=== PATIENT | female | born 1950 | race Caucasian/White ===

== ENCOUNTER 2024-05-15 16:12 | Emergency (ER) | payer MEDICARE ==
[~2024-05-15] VITALS: Ht 157.5 cm; Wt 87.1 kg
[2024-05-15] MEDS ORDERED: 0.9%NACL 1000ML 1,000 ML IV ONE (17:30)
[2024-05-15 17:35] VITALS: BP 123/70; PULSE 72; RESP 16; TEMP 97.8; O2SAT 95
--- NOTE | 2024-05-15 17:36 | NUR ---
PATIENT LEFT AMA PATIENT STATED "I FEEL MUCH BETTER AND I JUST WANT TO BE WITH MY IN THE ICU" I EXPLAINED TO PATIENT ABOUT LEAVING AMA WHICH SHE AGREED PATIENT HAD NO IV INSERTED PATIENT AMBULATED OUT OF ER, NO COMPLICATIONS
--- NOTE | 2024-05-15 18:10 | ERN ---
ED Note History of Present Illness Stated Complaint: DIZZY, LIGHT HEADED Chief Complaint: Syncope Time Seen by MD: 16:48 Time Seen by Midlevel: 16:48 Dictation: The patient is a 73-year-old with a history of hypertension, hyperlipidemia, CVA who presents to the emergency department with complaints of near-syncope episode about an hour and a half prior to arrival. Patient reports she was upstairs visiting her when she suddenly felt faint and like she was going to pass out. Patient currently reports she feels better, denies any shortness of breath, chest pain, dizziness, nausea or vomiting. Denies any recent illness. Patient currently having no complaints. Allergies: Coded Allergies: No Known Drug Allergies (Unverified Allergy, Unknown, 05/15/24) Past Medical History Past Medical History: High Cholesterol, Hypertension, Stroke Surgical History: Other Surgical History Other: LT KNEE REPLACEMENT RN Note Reviewed/Agreed w/PFSH: Yes Review of System Dictation Constitutional: Negative for fever,chills, and weight loss Eyes: Negative for injury, pain,redness, and discharge ENT: Negative for injury,pain or swelling Cardiovascular: Negative for chest pain, palpitations, and edema Respiratory: Negative for shortness of breath, cough, and wheezing, Abdomen/GI: Negative for abdominal pain, nausea, vomiting, diarrhea, and constipation Back: Negative for injury and pain : Negative for injury, bleeding and discharge MS/Extremity: Negative for injury and deformity Skin: Negative for rash, and discoloration Neuro: Negative for headache, weakness, numbness, tingling, and seizure positive for near-syncope Psych: Negative for suicide ideation, homicidal ideation, and hallucinations Initial Vital Sign VS Vital Signs Date Time Temp Pulse Resp B/P (MAP) Pulse Ox O2 Delivery O2 Flow Rate FiO2 05/15/24 16:25 98.6 79 20 98/64 98 0 05/15/24 16:44 Room Air* 21 Physical Exam Dictation Vital Signs reviewed General Appearance: Alert, oriented x 3, no acute distress, well developed, nourished. Head and Face: non-traumatic. Eyes: PERRL, pink conjunctivas, eyelid no trauma, anterior chamber with arcus senilis. Ears: Pinnas intact and no signs of trauma or erythema ear canals clear and no discharge TM no erythema Nose: No discharge, no bleeding. Oropharynx: Mouth normal, tongue pink. pharynx clear,no erythema, tonsils no exudates, no abscesses noted, mucous membrane moist Neck: Supple, non-tender, no thyromegaly, no masses, no JVD, no bruits Breast:Deferred Chest:No tenderness, no crepitus, no paradoxical movement, no retractions Lungs:Clear, well-ventilated, symmetric, no rales, no wheezing, no rhonchi, no stridor, good breath sounds bilaterally Heart: Regular rate, regular rhythm, no murmur, no gallops Vascular: no peripheral edema, Abdomen: Soft, positive bowel sounds, nondistended, no guarding, nontender, no rebound, no masses no hepatomegaly, no splenomegaly, no Pham's sign, no hernias. Rectal: Deferred Genital: Deferred Neurological: Normal speech, motor function intact, sensory function intact , upper extremities equal in strength, lower extremities equal in strength Musculoskeletal: Neck nontender, full range of motion, back nontender, full range of motion, Extremities: nontender, full range of motion Skin: Color pink, dry, no turgor, no rash, no lacerations, no abrasions, no contusions. Lymphatic: Deferred Results (Laboratory/Radiology) Labs Reviewed?: Yes ED Course ED Course Orders Procedure Category Date Status Time 0.9%Nacl 1000ml (Ns PHA 05/15/24 Complete 1000ml) 17:30 Orthostatic Vital CPOE 05/15/24 Transmitted Signs 17:10 Current Medications Medications (Trade) Dose Ordered Sig/Meng Route PRN Reason Start Time Stop Time Status Last Admin Dose Admin Sodium Chloride 1,000 ml @ 0 mls/hr ONCE ONCE IV 05/15/24 17:30 05/15/24 18:12 DC Vital Signs Date Time Temp Pulse Resp B/P (MAP) Pulse Ox O2 Delivery O2 Flow Rate FiO2 05/15/24 17:35 97.9 72 16 123/70 95 Room Air* 0 21 05/15/24 16:44 98.2 72 17 107/51 95 Room Air* 0 21 05/15/24 16:25 98.6 79 20 98/64 98 0 Medical Decision Making MDM Was informed by staff that patient at this time did not wound have any further work but wanted to leave against medical advice. Patient reports she was feeling fine and she needs to go see her upstairs. Risks and benefits discussed with the patient. DX & DISP Disposition: AMA Departure Impression: Primary Impression: Left against medical advice Condition: Against Medical Advice Referrals: INA ALEXANDER M.D. (PCP) I performed the substantive portion of the visit. I have reviewed and personally made and approve the management plan that is documented in the notes by myself or the BERNARDINO. I acknowledge full responsibility for the patient's management plan. DONNA LYONS May 15, 2024 18:10 KRISTOFER GILLILAND MD May 16, 2024 10:32
== END 2024-05-15 18:13 | disposition left against medical advice (07) ==
LOC: EDH 16:12
DX: R42 Dizziness and giddiness (principal); R55 Syncope and collapse; E78.00 Pure hypercholesterolemia, unspecified; I10 Essential (primary) hypertension; Z86.73 Personal history of transient ischemic attack (TIA), and cerebral infarction without residual deficits; Z96.652 Presence of left artificial knee joint
CPT/HCPCS: 99281